=== PATIENT | male | born 1945 | race Caucasian/White ===

== ENCOUNTER 2017-07-09 05:44 | Inpatient (IN) ==
[2017-07-09] MEDS ORDERED: CeFAZolin Pre 2,000 MG/100 ML 2,000 MG/100 ML BAG IVPB ONE (06:05)
[2017-07-09] MEDS ORDERED: Albuterol 2.5 MG/3 ML NEBULIZER IH ONE (06:06)
--- NOTE | 2017-07-09 06:55 | Anesthesia Evaluation PreOp ---
Date of Encounter: 07/09/17 Time of Encounter: 06:40 - Past History Planned Operation: Endovascular AAA repair Cardiac History: [place], Angina, HTN, Hyperlipidemia, Cardiac Stent (History of multiple "small" MIs. Most recently in March. Had 2 OKSANA placed 03/14/17. Had angina with exertion that has resolved with stent placement. Walked 10 miles this past weekend.) Pulmonary History: Smoker, COPD (Uses nebulizer PRN.) WORKERS COMPENSATION CLAIMS ASSISTANT History: Denies Any Significant HX Other Medical History: Denies Any Significant HX Alcohol Use: none Drug use: none Medications and Allergies 3 Allergy/AdvReac Type Severity Reaction Status Date / Time No Known Allergies Allergy Verified 07/09/17 06:05 - Meds/Allergy Pre-op Review Medications Reviewed: Yes Allergies Reviewed: Yes Beta Blockers on Current Med List: No (was on B ena in past but not currently) Anesthesia Results - Imaging EKG: report reviewed (sinus graciela), image reviewed Anesthesia Exam Selected Entries 07/09/17 06:18 Temperature 97.7 F Pulse Rate 58 Respiratory Rate 18 Blood Pressure 186/85 O2 Sat by Pulse Oximetry 96 - HEENT Pupil (Motor): Pupils equal Mallampati: II Teeth: Edentulous Oral Opening: Greater than 3 - Cardiac Rhythm: Regular Murmur: None - Pulmonary Breath Sounds: bilateral Clear Anesthesia Assess/Plan ASA Score: 3 Modified Regino Scale for Level of Consciousness: Cooperative, oriented, and tranquil Anesthetic Plan: General Monitoring Plan: Standard Monitors, A-Line Recovery Plan: PACU (Discussed GA, risks. Agreed to proceed.)
[2017-07-09] MEDS ORDERED: *HR* Succinylcholine 200 MG/10 ML VIAL IVP ONE (07:16)
[2017-07-09] MEDS ORDERED: Dexamethasone 4 MG/ML VIAL ONE ×2 (07:16→10:27)
[2017-07-09] MEDS ORDERED: *HR* Propofol 200 MG/20 ML VIAL IVP ONE (07:16)
[2017-07-09] MEDS ORDERED: Ondansetron 4 MG/2 ML VIAL ONE ×2 (07:16→10:27)
[2017-07-09] MEDS ORDERED: Lidocaine -MPF 2% 2 ML VIAL ONE (07:16)
[2017-07-09] MEDS ORDERED: *HR* Phenylephrine 10 MG/ML VIAL ONE (07:16)
[2017-07-09] MEDS ORDERED: Lidocaine -MPF 4% 5 ML AMPUL ONE (07:16)
[2017-07-09] MEDS ORDERED: *HR* FentaNYL (PF) 100 MCG/2 ML VIAL ONE (07:16)
[2017-07-09] MEDS ORDERED: Heparin 1,000 UNITS/500 mL NS 1,000 ML ONE ×2 (07:16→09:38)
[2017-07-09] MEDS ORDERED: *HR* Heparin 5,000 UNIT/ML VIAL ONE (07:16)
[2017-07-09] MEDS ORDERED: 0.9 % Sodium Chloride 300 ML ONE (07:17)
[2017-07-09] MEDS ORDERED: Heparin 1,000 UNITS/500 mL NS 500 ML ONE (07:19)
[2017-07-09] MEDS ORDERED: *HR* Remifentanil 2 MG VIAL IVP ONE (07:29)
--- NOTE | 2017-07-09 07:31 | History & Physical Report ---
Date of Encounter: 07/09/17 Time of Encounter: 07:30 24 Hour HP Update - Instructions Instructions: If the History and Physical is less than 30 days old and was completed prior to A.M. admission and or procedure and has NOT been updated on calendar day of procedure please complete this update prior to performing procedure. - Update Patient reports changes in Medical Condition: No Changes in examination, assessment, or condition: No Changes in Medication: No Preop tests/diagnostics Reviewed: Yes Pre-Op MRSA Screen: Negative Surgery Remains Indicated: Yes Consent for Planned Operative Procedure(s) Verified: Yes - Pre-Operative Checklist Preoperative Checklist Indicated: Yes Prophylactic Antibiotic Ordered: Yes Home Medications Include Beta Esthela: Yes Beta Esthela Taken Today (Day of Surgery): Yes Beta Esthela Taken Yesterday (Day Prior to Surgery): Yes Is VTE Prophylaxis Indicated?: Yes
[2017-07-09] MEDS: Ringers Solution, Lactated 1,000 ML IVC SCH ×2 (07:41→11:37)
[2017-07-09] MEDS ORDERED: *HR* HYDROmorphone 2 MG/ML SYRINGE ONE (10:28)
[2017-07-09] MEDS ORDERED: *HR* Promethazine 25 MG/ML VIAL IVP PRN (10:30)
[2017-07-09] MEDS ORDERED: *HR* HYDROmorphone (PF) 1 MG/ML SYRINGE IVP PRN (10:30)
--- NOTE | 2017-07-09 11:30 | Anesthesia Evaluation Post Op ---
Date of Encounter: 07/09/17 Time of Encounter: 11:30 - Vital Signs Vital Signs: Selected Entries 07/09/17 11:15 Pulse Rate 61 Respiratory Rate 14 Blood Pressure 143/69 O2 Sat by Pulse Oximetry 97 Oxygen Flow Rate (LPM) 2 - Lungs Lungs: Clear Ascult./Percussion - Airway Airway: Non-obstructed - Cardiovascular Regular Rate - Mental Status Mental Status: Alert & Oriented, Answers Appropriately - Nausea Vomiting Nausea Vomiting: Not Present - Hydration Hydration: Ice chips - Discharge PostOp Status: Transfer Patient to floor
--- NOTE | 2017-07-09 11:31 | Operative Note ---
Date of procedure: 07/09/17 Pre-op diagnosis: Abdominal aortic aneurysm Post-op diagnosis: same Procedure: Endovascular repair of abdominal aortic aneurysm using Medtronic Endurant II stent graft system Bilateral open femoral exposure Catheter placement into aorta, nonselective Endovascular aneurysm repair with modular bifurcated device with 1 docking limb Radiologic supervision and interpretation of endovascular abdominal aortic aneurysm repair Extension prosthesis initial vessel Radiologic supervision and interpretation of placement of extension prosthesis Complications: None Anesthesia: GETA Surgeon: Jose Guadalupe Madrid Co-Surgeon: Andrei Bernal Estimated blood loss (cc): 150 Specimen: None Condition: stable Disposition: PACU Procedure in Detail: History Hi Singleton is a 72-year-old white male who was found to have a 5.6 cm abdominal aortic aneurysm. He had recently had a coronary event in March and had undergone stent grafting at [facility]. He now comes today for repair and treatment of his abdominal aortic aneurysm. Procedure After informed consent was obtained the patient was taken to the operating room. General endotracheal anesthesia was established. An arterial line was placed. The abdomen groin and upper thighs were sterilely prepped and draped. A timeout procedure was then observed. A 2 team surgical approach was utilized for this procedure. This was done in order to minimize anesthetic time and decrease intraoperative bleeding. Also to facilitate intraoperative complex decision-making as well as to facilitate placement and movement of the catheter' s wires and balloons necessary for this procedure. The femoral areas were then explored through transverse oblique incisions. Dissection was carried down to reveal the common femoral artery. Controls obtained using vessel loops. An 18-gauge needle was then used and placed in a retrograde fashion and puncturing the common femoral artery. A J-wire was then inserted and this was followed by an 8 Faro[place] sheath and dilator. The dilator was removed and the sheath was flushed with heparinized saline. 5000 units of heparin was administered intravenously. A pigtail catheter was then inserted via the right side over a wire. An abdominal aortogram was performed in order to identify the renal arteries and iliac bifurcations to reconfirm the size measurements for selection of the device for the main body. With this done and measurements made a main body device was selected and was placed via the right side. This was an Endurant 2 stent graft system device that was a 32 x 16 x 166 mm. After deployment of the main body via the right side to the point that the docking limb was opened and exposed the top cap was then deployed in the suprarenal location. The right side device was then stabilized and attention was directed to the left side. A guidewire was then inserted into the docking limb and appropriate placement of this was confirmed by contrast injection. Then a marker pigtail catheter was utilized to create an angiogram of the aorta and the left iliac system. Making appropriate measurements a 16 x 20 x 156 mm stent graft limb was selected and deployed on the left side. After successful deployment with preservation of the iliac bifurcation the device was removed and 11 Faroese sheath was placed. Attention was then directed back to the right side. The right side was then completely deployed. The top Was then recaptured and the right-sided device removed. An 11 Faroese sheath was then placed. The pigtail catheter was reinserted and a retrograde angiogram of the right iliac system was performed. It was elected to proceed with placement of a third device and this was placed on the right side. A 16 x 16 x 82 mm device was then selected and placed into the right limb and right iliac system. With these 3 components now deployed a Reliant balloon was then inserted both on the right and then on the left side. The balloon was gently inflated and the stent graft was expanded to full diameter. After this was done it marker pigtail catheter was reinserted and a completion aortogram was performed. This demonstrated preservation of the renal arteries and the iliac bifurcations bilaterally. No endovascular leaks were identified. The groin devices were then removed. The arteriotomy sites were then repaired using 6-0 Prolene. After appropriate backbleeding and flushing the clamps removed and pulsatile flow was then restored into the lower extremities. Excellent pulses and Doppler signals were identified bilaterally. The wounds were then irrigated with antibiotic containing solution. The wounds were then closed in layers using absorbable suture. Dry sterile dressings were applied. There were no intraoperative complications. The patient tolerated the procedure well. The patient was extubated in the operating room and taken to the recovery room in stable condition. The sponge count and needle counts were correct.
[2017-07-09] MEDS ORDERED: Naloxone 0.4 MG/ML INJ IVP PRN (12:06)
[2017-07-09] MEDS ORDERED: *HR* Morphine 2 MG/ML SYRINGE IVP PRN ×2 (12:06)
[2017-07-09] MEDS ORDERED: Acetaminophen 325 MG TABLET PO PRN (12:06)
[2017-07-09] MEDS ORDERED: Ondansetron 4 MG/2 ML VIAL IVP PRN (12:06)
--- NOTE | 2017-07-09 12:47 | Operative Note ---
Date of procedure: 07/09/17 Pre-op diagnosis: 5.5cm Abdominal Aortic Aneurysm Post-op diagnosis: same Procedure: 1. Introduction of catheter into the aorta via right common femoral artery. 2. Introduction of catheter into the aorta via left common femoral artery. 3. Right femoral vessel exposure for endograft placement. 4. Left femoral vessel exposure for endograft placement. 5. Medtronic Endurant modular bifurcated aortic endograft placement with 1 docking limb including radiologic supervision and interpretation. 6. Placement of right distal extension limb including radiologic supervision and interpretation. Complications: None Anesthesia: GETA Surgeon: Andrei Bernal Co-Surgeon: Jose Guadalupe Madrid Estimated blood loss (cc): 150 Specimen: None Condition: stable Disposition: PACU Procedure in Detail: Indications: The patient is a 72 year old male with a history of hypertension, hyperlipidima, chronic obstructive pulmonary disease, ischemic cardiomyopathy and tobacco abuse who was found to have an infrarenal abdominal aortic aneurysm. His anatomy appeared apropriate for endograft placement. Endograft repair was recommended to reduce his risk of rupture. Procedure: The patient was identified, brought to the operating room and placed in the supine position on the operating room table. After induction of general endotracheal anesthesia, the patient was cleaned and draped in normal sterile fashion. A two surgeon approach was utilized for this procedure in order to minimize anesthetic time and the risks for complications due to the patients comorbid conditions. In addition, a two surgeon approach was used for intraoperative decision making. Oblique incisions were made over both groins sharply. Hemostasis was obtained with electrocautery. Using blunt and sharp and electrocautery dissection, the bilateral common, deep and superficial femoral arteries were dissected circumferentially and surrounded with Vesseloops. At this point, the patient received heparin intravenously and then bilateral femoral punctures with large- bore needles were performed. J wires were advanced into the aorta under fluoroscopic view. Given the anatomy, the main body was selected to be the right side in this patient. The needles were exchanged for bilateral sheaths and a long Pigtail catheter was advanced over the right wire into the aortic arch. The wire was removed and an angiogram was then performed via a pigtail catheter for sizing of the graft. The wire was replaced with a stiff wire. The catheter was removed and repositioned in the suprarenal aorta via the left femoral artery. The main body was inserted over the stiff wire with the contralateral limb being in the ipsilateral position. An aortogram was then performed at the level of the renal artery. The graft was positioned just inferior to the renal arteries and the first 2 segments were deployed. Again an aortogram revealed adequate infrarenal placement. The graft was then further opened to the contralateral limb exposed. A final angiogram was performed confirming adequate infrarenal placement. The suprarenal stent was deployed in the usual fashion. The contralateral limb was then selected with a wire using a guiding catheter. Intragraft placement of the wire was confirmed by placing the pigtail and spinning it freely. An oblique view of the pelvis was performed with contrast to size the left extension limb. The sheath was removed and exchanged for the appropriate limb, which was advanced under fluoroscopic view and positioned. It was then expanded. The introducer and graft sheath were exchanged for a sheath. An oblique view of the right pelvis was performed and the length of the extension limb on the right was determined. The sheath was exchanged for the limb and then the limb was deployed. The introducer and graft sheath were exchanged for a sheath. Upon completion of the graft docking limb extension, a Reliant balloon was then advanced into the graft proximal and distal endpoints as well as overlap were expanded with gentle pressure. A flush completion angiogram revealed no evidence of an endoleak. Further imaging of the right femoral vessels revealed no evidience of stenosis. Tension was applied to the Vessel loops in the groin. The sheaths and wires were then removed. The bilateral arteriotomies were repaired with a running 6-0 Prolene. Antibiotic irrigation was infused into the groin. The bilateral groins incisions were closed with 2-0 Vicryl, 3-0 Vicryl and 4-0 Vicryl. Sterile dressings were applied. The patient was then extubated and taken to the recovery room in stable condition.
[2017-07-09] MEDS: *HR* HYDROcodone/Acet 5/325 mg TABLET PO PRN (12:54)
[2017-07-09] MEDS ORDERED: 0.9 % Sodium Chloride 1,000 ML IVC SCH (19:00)
[2017-07-09] MEDS ORDERED: ceFAZolin 2,000 MG in D5% in Water 100 ML IVPB SCH (19:30)
[2017-07-09] MEDS: ceFAZolin 2,000 MG in D5% in Water 100 ML IVPB SCH (19:57)
[2017-07-09] MEDS ORDERED: *HR* LORazepam 1 MG TABLET PO SCH (21:00)
[2017-07-10] MEDS ORDERED: ceFAZolin 2,000 MG in D5% in Water 100 ML IVPB SCH
[2017-07-10] MEDS: *HR* HYDROcodone/Acet 5/325 mg TABLET PO PRN (01:41)
[2017-07-10] MEDS: ceFAZolin 2,000 MG in D5% in Water 100 ML IVPB SCH ×2 (01:42→11:44)
[2017-07-10 06:00] LABS: Basophils % 0.1 %; Eosinophils % 0.1 %; Hematocrit 35.5 % (37.5-50.1); Immature Granulocytes % 0.4 % (0-4); Lymphocytes # 1.6 K/mcL (0.6-4.6); Lymphocytes % 12.1 %; Mean Corpuscular HGB Conc 34.1 g/dL (31.6-35.5); Mean Corpuscular Hemoglobin 29.8 pg (28.0-33.3); Mean Corpuscular Volume 87.4 fL (83.0-100.0); Mean Platelet Volume 10.8 fL (9.4-12.4); Monocytes # 1.1 K/mcL (0.0-1.3); Monocytes % 8.3 %; Neutrophils # 10.4 K/mcL (1.6-8.9); Platelet Count 132 K/mcL (140-400); Red Blood Count 4.06 M/mcL (4.19-5.50); Red Cell Distribution Width 13.3 % (11.5-14.5)
[2017-07-10 06:03] LABS: Hemoglobin 12.1 g/dL (12.9-16.9)
[2017-07-10 06:09] LABS: BUN/Creatinine Ratio 15 (6-26); Blood Urea Nitrogen 14 mg/dL (8-26); Carbon Dioxide 27 mEq/L (19-29); Chloride 103 mEq/L (98-109); Glucose 106 mg/dL (70-99); Osmolality,Calculated 283 (280-300); Potassium 3.9 mEq/L (3.5-4.5); Sodium 136 mEq/L (136-145); eGFR For African Americans > 60 (> 60); eGFR For Non-African Americans > 60 (> 60)
[2017-07-10] MEDS ORDERED: Isosorbide MONOnitrate (24 HR) 30 MG TAB.ER.24H PO SCH (09:00)
[2017-07-10] MEDS ORDERED: Cholecalciferol (D-3) 1,000 UNIT TABLET PO SCH (09:00)
[2017-07-10] MEDS ORDERED: hydroCHLOROthiazide 25 MG TABLET PO SCH (09:00)
[2017-07-10] MEDS ORDERED: Aspirin Enteric Coated 81 MG Tablet PO SCH (09:00)
[2017-07-10 16:29] VITALS: BP 110/44
--- NOTE | 2017-07-10 17:57 | Discharge Summary ---
Date of Encounter: 07/10/17 Time of Encounter: 17:55 - Discharge Diagnosis (1) AAA (abdominal aortic aneurysm) Priority: Primary Status: Acute Comments: Patient had an asymptomatic 5.6 cm abdominal aortic aneurysm. This was repaired using an endovascular stent graft by [employer]. Qualifiers: Presence of rupture: without rupture Qualified Code(s): I71.4 - Abdominal aortic aneurysm, without rupture (2) CAD (coronary artery disease) Priority: Secondary Status: Chronic Comments: Patient is under medical treatment for coronary artery disease. He is status post a drug-eluting stent placed at [facility] in March. Qualifiers: Coronary Disease-Associated Artery/Lesion type: [place] artery [place] vs. transplanted heart: [place] heart Associated angina: without angina Qualified Code(s): I25.10 - Atherosclerotic heart disease of [place] coronary artery without angina pectoris - Discharge Medications Home Medications: Aspirin [Lo-Dose Aspirin EC] 81 mg PO DAILY 07/09/17 [History] Atorvastatin [Lipitor] 40 mg PO DAILY 07/09/17 [History] Carvedilol [Coreg] 6.25 mg PO BID 07/09/17 [History] Cholecalciferol (D-3) [Vitamin D] 2,000 unit PO DAILY 07/09/17 [History] Isosorbide MONOnitrate (24 HR) [Imdur] 30 mg PO DAILY 07/09/17 [History] LORazepam [Ativan] 1 mg PO HS 07/09/17 [History] Prasugrel [Effient] 10 mg PO DAILY 07/09/17 [History] hydroCHLOROthiazide [Hydrochlorothiazide] 25 mg PO DAILY 07/09/17 [History] Allergies/Adverse Reactions: 3 Allergy/AdvReac Type Severity Reaction Status Date / Time No Known Allergies Allergy Verified 07/09/17 07:48 Date of admission: 07/09/17 11:39 Primary care physician: JOSHUA Khan Consults: None Procedure(s) Performed: Endovascular repair of abdominal aortic aneurysm Discharging clinician: Jose Guadalupe Madrid Anticipated date of discharge: 07/10/17 - Patient Status Disposition: Home, Self-Care Condition: Good Functional capacity at discharge: independent ambulation Overall status at discharge: patient is progressing back to baseline - Discharge Instructions Follow Up With: Criselda Luna CNP [Primary Care Provider] - 07/18/17 8:00 am (PLEASE TAKE ID , INSURANCE CARDS AND DISCHARGE SUMMARY) Jose Guadalupe Madrid MD [Partnered Physician] - 07/31/17 11:45 am Additional Instructions: Continue usual home medications Use incentive spirometer 10 times an hour while awake Keep groin incisions dry for total 5 days after surgery No lifting greater than [address] until seen in follow-up. No manual labor. - Diet and Activity Activity: increase activity as tolerated Diet: low fat, low cholesterol - Hospital Course Hospital course: Mr. Singleton is a 72 year old male With an asymptomatic 5.6 cm abdominal aortic aneurysm. The patient underwent an endovascular repair on July 09. He had an uneventful periprocedural course. He was stable postoperatively. He was felt fit for discharge on the afternoon of postoperative day #1. Information and directions in regards to diet and exercise and wound care and medications were reviewed with the patient prior to discharge. - Time Spent with Patient Total time spent providing and/or coordinating discharge services: Exam Vital Signs, Last 4 Hours Temp Pulse Resp BP Pulse Ox 07/10/17 16:27 98.1 F 59 19 110/44 96 07/10/17 15:24 66 General: Present: Conversant, No Apparent Distress, Well developed, Well nourished HEENT: Present: Atraumatic Neck: Absent: JVD Cardiac: Present: Reg Rate and Rhythm, Normal S1 and S2 Lungs: Present: Normal Breath Sounds Neuro: Present: Alert and responsive, No focal deficits noted Abdomen: Present: Soft, Non-tender. Absent: Masses Vascular: Present: Surgical incisions (Surgical incisions are clean and dry) Skin: Present: No rashes noted on visualized skin - VTE Documentation of Mechanical Device: Intermittent pneumatic compression device
== END 2017-07-10 18:45 | disposition home or self-care (01) | DRG 269 ==
LOC: SAMDAY 05:44 → 2NNU 11:39
PROVIDERS: ADMIT Surgery Vascular Surgery; ATTEND Surgery Vascular Surgery